=== PATIENT | female | born 1955 | race African-American/Black ===

== ENCOUNTER → 2022-05-01 07:31 | Outpatient (CLI) | payer OTHER, MEDICAID, SELFPAY ==
[2022-05-01 09:39] LABS: Free T3, Triiodothyronine Free 4.05 pg/mL (2.77-5.27); Free T4, Direct Thyroxine 0.95 ng/dL (0.78-2.19); T4 Total Thyroxine 8.68 ug/dL (5.5-11.0)
== END ==
PROVIDERS: PCP Naturopath; Referring Provider Naturopath; Visit Provider Naturopath
DX: R53.83 Other fatigue (principal)
CPT/HCPCS: 36415; 84436; 84439; 84443; 84481